=== PATIENT | female | born 1955 | race African-American/Black ===

== ENCOUNTER 2018-01-25 11:08 | Inpatient (IN) | payer OTHER ==
[~2018-01-25] VITALS: Ht 180.3 cm; Wt 126.2 kg
[2018-01-25 11:45] LABS: Basophils # (auto) 0.1 uL; Basophils % (auto) 0.9 % (0.0-2.0); Eosinophils # (auto) 0.1 uL; Eosinophils % (auto) 1.3 % (0.0-7.0); Hematocrit 46.7 % (36.0-46.0); Hemoglobin 14.8 g/dL (12.2-16.2); Lymphocytes # (auto) 1.9 uL; Lymphocytes % (auto) 19.4 % (10.0-50.0); Mean Corpuscular Hemoglobin 27.8 pg (28.0-32.0); Mean Corpuscular Hgb Conc. 31.8 g/dL (32.0-36.0); Mean Corpuscular Volume 87.5 fL (80.0-100.0); Monocytes # (auto) 0.5 uL; Monocytes % (auto) 5.2 % (0.0-12.0); Neutrophils # (auto) 7.3 uL; Neutrophils % (auto) 73.2 % (37.0-80.0); Nucleated Red Blood Cells % 0.2 %; Platelet Count (auto) 251 10^3/uL (140-450); Red Blood Cells 5.33 10^6/uL (4.0-5.20); Red Cell Distribution Width 16.3 % (11.8-14.3); White Blood Cell 9.9 10^3/uL (4.4-10.8)
[2018-01-25 11:57] LABS: INR 0.98 (0.9-1.15); Partial Thromboplastin Time 25.9 sec (22.64-33.71); Prothrombin Time 10.7 sec (9.37-12.3)
[2018-01-25 12:13] LABS: Alanine Aminotransferase 15 U/L (13-56); Albumin 3.6 g/dL (3.4-5.0); Alkaline Phosphatase 265 U/L (45-117); Anion Gap 10 (5-15); Aspartate Aminotransferase 13 U/L (15-37); BUN/Creatinine Ratio 16.2; Bilirubin, Total 0.5 mg/dL (0.2-1.0); Blood Urea Nitrogen 17 mg/dL (7-18); Calcium 9.3 mg/dL (8.5-10.1); Carbon Dioxide 26 mmol/L (21-32); Chloride 104 mmol/L (98-107); GFR African American 68 mL/min; GFR Non-African American 56 mL/min; Glucose 99 mg/dL (74-106); Magnesium 2.3 mg/dL (1.6-2.6); Potassium 3.7 mmol/L (3.5-5.1); Sodium 140 mmol/L (136-145); Total Protein 8.2 g/dL (6.4-8.2)
[2018-01-25 12:48] LABS: Urine Bacteria NONE SEEN /hpf (None Seen); Urine Blood Negative /uL (Negative); Urine Specific Gravity 1.007 (1.001-1.035); Urine WBC <1 /hpf (0 - 5)
[2018-01-25] MEDS ORDERED: LACTULOSE 20Gm/30ML SOLN PO PRN (15:45)
[2018-01-25] MEDS ORDERED: ACETAMINOPHEN 500 MG TAB PO PRN (15:45)
[2018-01-25] MEDS ORDERED: LABETALOL HCL 5 MG/ML ML 20ML VIAL IV PRN (15:45)
[2018-01-25] MEDS ORDERED: PROMETHAZINE HCL 25 MG/ML 1ML IV PRN (15:45)
[2018-01-25] MEDS ORDERED: LORazepam 0.5 MG TAB PO PRN (15:45)
[2018-01-25] MEDS ORDERED: NITROGLYCERIN 0.4 MG SL TAB SL PRN (15:45)
[2018-01-25] MEDS ORDERED: HYDROcodone-ACET 5/325MG TAB PO PRN (15:45)
[2018-01-25] MEDS ORDERED: MORPHINE SULFATE 4 MG/ML SYR/VIAL IV PRN ×2 (15:45)
[2018-01-25] MEDS ORDERED: TEMAZEPAM 15 MG CAP PO PRN (15:45)
[2018-01-25] MEDS ORDERED: ASPirin 81 mg TAB PO ONE (16:15)
[2018-01-25 16:22] LABS: Folate (Folic Acid) 8.59 ng/mL (5.38-24)
[2018-01-25] MEDS: ENOXAPARIN SOD 40 MG/0.4 ML SYRINGE SC SCH (16:33)
[2018-01-25] MEDS: SODIUM CHLORIDE 0.9% 1,000 ML IV SCH (16:34)
[2018-01-25 18:06] VITALS: BP 107/70
[2018-01-25 20:00] VITALS: BP 117/82
[2018-01-25 21:48] VITALS: BP 107/70
[2018-01-25 22:00] VITALS: BP 117/82
[2018-01-25] MEDS: ATORVASTATIN 20 MG TAB PO SCH (22:02)
[2018-01-26] VITALS (7 sets, daily range): BP systolic 94–112; BP diastolic 46–73
[2018-01-26] MEDS ORDERED: METO100T87 PO (02:10)
[2018-01-26] MEDS ORDERED: LEVO125T7 PO (02:10)
[2018-01-26] MEDS ORDERED: LISI40TA PO (02:10)
[2018-01-26] MEDS ORDERED: FURO20TA3 PO (02:10)
[2018-01-26] MEDS ORDERED: POTA10TA34 PO (02:10)
[2018-01-26] MEDS ORDERED: AMLO5TAB2 PO (02:11)
[2018-01-26] MEDS: SODIUM CHLORIDE 0.9% 1,000 ML IV SCH ×2 (04:11→14:18)
[2018-01-26 05:51] LABS: Cholesterol 149 mg/dL (< 200); HDL Cholesterol 49 mg/dL (40-59); LDL Cholesterol 95 mg/dL (< 100); Triglycerides 75 mg/dL (< 150)
[2018-01-26] MEDS: ENOXAPARIN SOD 40 MG/0.4 ML SYRINGE SC SCH (09:14)
[2018-01-26] MEDS: ASPirin 81 mg TAB PO SCH (09:14)
[2018-01-26] MEDS ORDERED: LEVOTHYROXINE SODIUM 112 MCG TAB PO ONE (14:45)
[2018-01-26] MEDS ORDERED: LEVOTHYROXINE SODIUM 25 MCG TAB PO ONE (14:45)
[2018-01-26] MEDS: ATORVASTATIN 20 MG TAB PO SCH (22:13)
[2018-01-27 05:19] VITALS: BP 109/65
[2018-01-27] MEDS: SODIUM CHLORIDE 0.9% 1,000 ML IV SCH (06:39)
[2018-01-27] MEDS ORDERED: LEVOTHYROXINE SODIUM 50 MCG TAB PO SCH (07:00)
[2018-01-27] MEDS ORDERED: LEVOTHYROXINE SODIUM 125 MG PO SCH (07:00)
[2018-01-27 08:00] VITALS: BP 109/60
[2018-01-27 09:10] VITALS: BP 109/60
[2018-01-27] MEDS: ENOXAPARIN SOD 40 MG/0.4 ML SYRINGE SC SCH (10:02)
[2018-01-27] MEDS: ASPirin 81 mg TAB PO SCH (10:02)
[2018-01-27 12:46] VITALS: BP 124/76
== END 2018-01-27 15:45 | disposition home or self-care (01) | DRG 69 ==
LOC: ER 11:08 → TELE 11:09 → TELE-WESTW 17:49
PROVIDERS: ADMIT Internal Medicine; ATTEND Internal Medicine
DX: G45.9 Transient cerebral ischemic attack, unspecified (principal); E11.9 Type 2 diabetes mellitus without complications; I10 Essential (primary) hypertension; I25.10 Atherosclerotic heart disease of native coronary artery without angina pectoris; G47.10 Hypersomnia, unspecified; H91.91 Unspecified hearing loss, right ear; E66.9 Obesity, unspecified; Z68.38 Body mass index [BMI] 38.0-38.9, adult; Z90.710 Acquired absence of both cervix and uterus; Z88.0 Allergy status to penicillin; Z90.49 Acquired absence of other specified parts of digestive tract
CPT/HCPCS: 36415; 70450; 80053; 80061; 81001; 82550; 82607; 82746; 83735; 84443; 84484; 85025; 85610; 85652; 85730; 93005; 93886; 94660; 94761; 95819